=== PATIENT | male | born 1945 | race Caucasian/White ===

== ENCOUNTER 2017-09-24 18:16 | Emergency (ER) | payer MEDICARE, BC ==
[~2017-09-24] VITALS: Ht 175.3 cm; Wt 97.0 kg
[~2017-09-24 18:16] MED LIST: ASPIRIN CHEWABL81 MG PO; ENALAPRIL10 MG PO; FERROUS SULF325 M2 PO; FLULAVAL IM; LOVASTATIN10 MG PO; MEDDOSEPAK PO; MELOXICAM15 MG PO; METOPROLOL TART50 MG PO
[2017-09-24 21:30] VITALS: BP 125/82
== END 2017-09-24 21:33 | disposition short-term general hospital (02) ==
LOC: ED 18:16
DX: K22.2 Esophageal obstruction (principal); I10 Essential (primary) hypertension; Z95.5 Presence of coronary angioplasty implant and graft
CPT/HCPCS: J1610

== ENCOUNTER 2022-05-04 02:43 | Emergency (ER) | payer MEDICARE, BC ==
[~2022-05-04] VITALS: Ht 175.3 cm; Wt 104.0 kg
[2022-05-04] VITALS (10 sets, daily range): BP systolic 150–163; BP diastolic 72–89
[2022-05-04 03:52] LABS: ALBUMIN 3.8 g/dL (3.2-5.0); ALKALINE PHOSPHATASE 76 u/l (38-126); BUN 15 mg/dL (8-23); BUN/CREATININE RATIO 21 (12-20 (CALC)); CHLORIDE 98 mmol/l (95-108); CREATININE 0.7 mg/dL (0.7-1.3); GFR FOR AFR.AMER. > 60 ML/MIN (>=60 (CALC)); GFR OTHER RACES > 60 ML/MIN (>=60 (CALC)); LIPASE 46 u/l (23-300); POTASSIUM 4.1 mmol/l (3.5-5.1); SGOT/AST 32 u/l (19-48); SODIUM 138 mmol/l (137-146); TOTAL PROTEIN 6.8 g/dL (6.3-8.2)
[2022-05-04 03:54] LABS: ANION GAP 9 (6-22 (CALC)); CARBON DIOXIDE 35 mmol/l (22-30)
[2022-05-04 03:57] LABS: IMMATURE GRANULOCYTES 0.7 % (0.0-5.0); MEAN CORPUSCULAR HGB 26.7 pG CALC (26.0-32.0); MEAN CORPUSCULAR HGB CONC 30.7 g/dL CAL (32.0-36.0); NEUT# 5.42 thou/uL (1.82-7.42); RED BLOOD COUNT 3.97 mill/uL (4.70-6.10); RED CELL DISTRI WIDTH 17.5 % (11.5-15.5)
[2022-05-04 04:03] LABS: HEMATOCRIT 34.5 % (39.0-50.0); HEMOGLOBIN 10.6 g/dl (14.0-18.0); MEAN CELL VOLUME 86.9 fL CALC (80.0-100.0)
[2022-05-04 04:29] LABS: URINE BILIRUBIN - DIPSTICK NEGATIVE (NEGATIVE); URINE BLOOD DIPSTICK TRACE-INTACT (NEGATIVE); URINE COLOR YELLOW; URINE GLUCOSE - DIPSTICK NEGATIVE (NEGATIVE); URINE KETONE >=80 mg/dL (NEGATIVE); URINE LEUK ESTERASE NEGATIVE (NEGATIVE); URINE PROTEIN - DIPSTICK NEGATIVE (NEG-TRACE); URINE UROBILINOGEN - DIPSTICK 0.2 E.U./dL (0.2)
[2022-05-04 04:32] LABS: URINE NITRITE - DIPSTICK NEGATIVE (Negative)
[2022-05-04] MEDS ORDERED: PROMETHAZINE HY25 M1 PO (04:51)
== END 2022-05-04 05:10 | disposition home or self-care (01) ==
LOC: ED 02:43
PROVIDERS: Family Medicine
DX: K52.9 Noninfective gastroenteritis and colitis, unspecified (principal); I10 Essential (primary) hypertension; Z96.652 Presence of left artificial knee joint; Z20.822 Contact with and (suspected) exposure to COVID-19
CPT/HCPCS: S0164